=== PATIENT | female | born 1945 | race Caucasian/White ===

== ENCOUNTER → 2016-05-12 | Outpatient (CLI) | payer MEDICARE, OTHER ==
[~2016-05-12] VITALS: Ht 165.1 cm; Wt 71.2 kg
[~2016-05-12] MED LIST: ASPI81TA85 PO; CITRTAB10 PO; COQ-100C2 PO; DONETAB6 PO; LIDOCAINE 2% INJ 100 MG/5 ML SDV (FOR ANES.) As Ordered ONE; LISI10TA4 PO; MULT1TAB18 PO; NS 1,000 ML IV SCH; PRAV40TA2 PO; PROPOFOL 500 MG/50 ML VIAL As Ordered ONE; TAMO20TA4 PO; VITA100T86 PO; VITAMIN B12; [UNRECOGNIZED DRUG - OTHER]
--- NOTE | 2016-05-12 08:38 | ROOR ---
Patient Name: Lizzeth Jackson Procedure Date: 05/12/2016 8:08 AM Date of : 1945 Age: 70 Room: [facility] Gender: Female Note Status: Finalized Procedure: Colonoscopy Indications: Change in bowel habits, constipation,fecal impactions, mucousy stools Providers: Kevin WESTBROOK MD Referring MD: Yanna ALVARENGA MD Requesting Provider: Medicines: Monitored Anesthesia Care Complications: No immediate complications. Procedure: Pre-Anesthesia Assessment: - The heart rate, respiratory rate, oxygen saturations, blood pressure, adequacy of pulmonary ventilation, and response to care were monitored throughout the procedure. The Colonoscope was introduced through the anus and advanced to the cecum, identified by appendiceal orifice and ileocecal valve. The colonoscopy was performed without difficulty. The patient tolerated the procedure well. The quality of the bowel preparation was good. Findings: The perianal and digital rectal examinations were normal. (Exam: Complete, Prep: Good or Excellent.) A patchy area of granular mucosa was found in the rectum. Biopsies were taken with a cold forceps for histology. Internal hemorrhoids were found during retroflexion. The hemorrhoids were medium-sized. Multiple small and large-mouthed diverticula were found in the sigmoid colon and descending colon. There was evidence of diverticular spasm. A diminutive polyp was found in the sigmoid colon. The polyp was sessile. The polyp was removed with a jumbo cold forceps. Resection and retrieval were complete. The exam was otherwise without abnormality on direct and retroflexion views. Impression: - (Exam: Complete, Prep: Good or Excellent.) - Granularity in the rectum. Biopsied. - Moderate Internal hemorrhoids. - Moderate diverticulosis in the sigmoid colon and in the descending colon. There was evidence of diverticular spasm. - One diminutive polyp in the sigmoid colon, removed with a jumbo cold forceps. Resected and retrieved. - The examination was otherwise normal on direct and retroflexion views. Recommendation: - Miralax 1 capful (17 grams) in 8 ounces of water PO BID. - Use fiber, for example Citrucel, Fibercon, Konsyl or Metamucil. - Telephone endoscopist for pathology results in 2 weeks. Kevin Westbrook MD Kevin WESTBROOK MD 05/12/2016 8:37:41 AM This report has been signed electronically. Number of Addenda: 0 Note Initiated On: 05/12/2016 8:08 AM Estimated Blood Loss: Estimated blood loss: none.
[2016-05-12 08:55] VITALS: BP 149/69
== END | disposition home or self-care (01) ==
LOC: M OPP 07:29
PROVIDERS: ATTEND Internal Medicine Gastroenterology
DX: K64.8 Other hemorrhoids (principal); K57.30 Diverticulosis of large intestine without perforation or abscess without bleeding; D12.5 Benign neoplasm of sigmoid colon; K62.89 Other specified diseases of anus and rectum; I10 Essential (primary) hypertension; N88.2 Stricture and stenosis of cervix uteri; E78.5 Hyperlipidemia, unspecified; J44.9 Chronic obstructive pulmonary disease, unspecified; G31.84 Mild cognitive impairment of uncertain or unknown etiology; Z79.899 Other long term (current) drug therapy; Z79.82 Long term (current) use of aspirin; Z88.8 Allergy status to other drugs, medicaments and biological substances; Z88.0 Allergy status to penicillin; Z88.5 Allergy status to narcotic agent

== ENCOUNTER → 2016-11-08 | Outpatient (CLI) | payer MEDICARE, OTHER ==
[~2016-11-08] MED LIST changes: -LIDOCAINE 2% INJ 100 MG/5 ML SDV (FOR ANES.) As Ordered ONE; -NS 1,000 ML IV SCH; -PROPOFOL 500 MG/50 ML VIAL As Ordered ONE
[2016-11-08 12:05] LABS: ALBUMIN 3.7 GM/DL (3.2-5.2); ALBUMIN/GLOBULIN RATIO 1.16 (1.00-1.93); ALKALINE PHOSPHATASE 28 U/L (45-117); ALT/SGPT 28 U/L (12-78); AST/SGOT 27 U/L (15-37); BILIRUBIN,DIRECT < 0.1 MG/DL (0.0-0.2); BILIRUBIN,TOTAL 0.4 MG/DL (0.2-1.0); BLOOD UREA NITROGEN 20 MG/DL (7-18); CREATININE FOR GFR 0.75 MG/DL (0.55-1.02); GLOMERULAR FILTRATION RATE > 60.0 (>39); TOTAL PROTEIN 6.9 GM/DL (6.4-8.2)
== END ==
LOC: M LAB 10:41
PROVIDERS: ATTEND Internal Medicine Gastroenterology
DX: R93.2 Abnormal findings on diagnostic imaging of liver and biliary tract (principal)

== ENCOUNTER → 2016-11-10 | Outpatient (CLI) | payer MEDICARE, OTHER ==
--- NOTE | 2016-11-11 09:23 | REP ---
MRI LIVER WITH AND WITHOUT CONTRAST: TECHNIQUE: Multiple sequences obtained in the axial and coronal planes prior to and following the intravenous administration of 15 mL of Gadolinium. Correlation is made with recent CT exam from [facility] 10/03/2016 which showed a liver lesion at the dome of the liver at the border between the right and left lobes. Today's MRI shows an oval nodule at this location which measures approximately 3.1 x 2.5 cm. It is hyperintense on T1 and hypointense on T2. There is peripheral nodular enhancement after the administration of intravenous Gadolinium with gradual filling in of the lesion with contrast, consistent with a hemangioma. No other liver lesion is seen. The spleen, adrenals and pancreas are unremarkable. There are bilateral renal cysts again noted. Patient has had a prior cholecystectomy. No adenopathy or free fluid is seen in the visualized abdomen. There do appear to be some patchy areas of diminished signal on the out-phase images within the liver, compatible with some areas of patchy fatty infiltration of the liver. IMPRESSION: Liver lesion at the dome, between the right and left lobes, corresponds to a hemangioma. No other liver lesion identified. Signed by Shant Stewart MD 11/11/2016 09:49 A
== END ==
LOC: M RAD 16:30
PROVIDERS: ATTEND Internal Medicine Gastroenterology
DX: K76.89 Other specified diseases of liver (principal)
CPT/HCPCS: 74183; A9576

== ENCOUNTER → 2017-02-09 | Outpatient (REF) | payer MEDICARE, OTHER | LOC: M SFHCWAGY 10:33 | PROVIDERS: ATTEND Nurse Practitioner Women's Health | DX: Z12.4 Encounter for screening for malignant neoplasm of cervix (principal); Z12.12 Encounter for screening for malignant neoplasm of rectum | CPT/HCPCS: 82270; G0101; G0123 ==

== ENCOUNTER → 2017-06-26 | Outpatient (REF) | payer MEDICARE, OTHER ==
[2017-06-26 15:05] LABS: AMORPHOUS SEDIMENT, URINE SMALL AMOUNT (NEGATIVE); BACTERIA, URINE LARGE AMOUNT; MUCUS, URINE SMALL AMOUNT (NEGATIVE); SQUAMOUS EPITHELIAL CELL URINE LARGE AMOUNT /hpf (SMALL AMT); TRANSITIONAL EPI CELLS, URINE SMALL AMOUNT /hpf
[2017-06-26 15:07] LABS: HYALINE CAST, URINE NONE SEEN /lpf (0-1); MICROSCOPIC EXAM PERFORMED
== END ==
LOC: M LAB REF 09:10
DX: R31.9 Hematuria, unspecified (principal)
CPT/HCPCS: 81015

== ENCOUNTER 2017-07-11 15:22 | Emergency (ER) | payer MEDICARE, OTHER ==
[2017-07-11] MEDS: ALBUTEROL SULFATE 2.5 MG/0.5 ML INH NEB SOLN NEB ×2 (16:06)
[2017-07-11] MEDS: IPRATROPIUM 0.5MG/ALBUTEROL 2.5MG INH SOL UD 3ML (DUONEB)(J7620) NEB ×4 (16:13→16:28)
[2017-07-11] MEDS: methylPREDNISolone INJ 125 MG/2 ML VIAL (J2930) IV ×2 (16:15)
[2017-07-11 16:38] LABS: ABG BASE EXCESS 0.1 (-2.0-2.0); ABG HCO3 24.4 MEQ/L (22.0-26.0); ABG STANDARD HCO3 24.2 MEQ/L (22.0-26.0); ABG TOTAL CO2 25.6 MEQ/L (23.0-31.0); ABG pH (ARTERIAL) 7.415 UNITS (7.350-7.450)
[2017-07-11 16:43] LABS: ABG O2 SATURATION 79.8 % (95.0-99.0); ABG PARTIAL PRESSURE O2 45.9 mmHg (75.0-100.0); BASO # 0.1 10^3/uL (0.0-0.2); BASO % 0.4 % (0.0-1.0); HEMATOCRIT 44.5 % (36.0-47.0); HEMOGLOBIN 14.8 g/dl (12.0-15.5); IMMATURE GRANULOCYTE % 0.5 % (0-3.0); LYMPH # 1.3 10^3/uL (1.5-4.5); LYMPH % 7.4 % (24.0-44.0); MEAN CORPUSCULAR HEMOGLOBIN 30.1 pg (27.0-33.0); MEAN CORPUSCULAR HGB CONC 33.3 g/dl (32.0-36.5); MEAN CORPUSCULAR VOLUME 90.4 fl (80.0-96.0); MONO # 0.6 10^3/uL (0.0-0.8); MONO % 3.8 % (0.0-5.0); NEUTROPHILS # 14.8 10^3/uL (1.8-7.7); NEUTROPHILS % 87.9 % (36.0-66.0); PLATELET COUNT, AUTOMATED 258 10^3/uL (150-450); RED BLOOD COUNT 4.92 10^6/uL (4.00-5.40); RED CELL DISTRIBUTION WIDTH 13.3 % (11.5-14.5); WHITE BLOOD COUNT 16.9 10^3/uL (4.0-10.0)
[2017-07-11 16:51] LABS: INFLUENZA A AMPLIFICATION NEGATIVE (NEGATIVE); INFLUENZA B AMPLIFICATION NEGATIVE (NEGATIVE)
[2017-07-11 17:02] LABS: ALBUMIN 3.8 GM/DL (3.2-5.2); ALBUMIN/GLOBULIN RATIO 0.95 (1.00-1.93); ALKALINE PHOSPHATASE 30 U/L (45-117); ALT/SGPT 32 U/L (12-78); ANION GAP 11 MEQ/L (8-16); AST/SGOT 25 U/L (7-37); BILIRUBIN,DIRECT < 0.1 MG/DL (0.0-0.2); BILIRUBIN,TOTAL 0.3 MG/DL (0.2-1.0); BLOOD UREA NITROGEN 15 MG/DL (7-18); CALCIUM LEVEL 8.6 MG/DL (8.8-10.2); CARBON DIOXIDE LEVEL 23 MEQ/L (21-32); CHLORIDE LEVEL 107 MEQ/L (98-107); CPK CREATINE PHOSPHOKINASE 113 U/L (26-192); CREATININE FOR GFR 0.82 MG/DL (0.55-1.30); GLOMERULAR FILTRATION RATE > 60.0 (>39); GLUCOSE, FASTING 181 MG/DL (70-100); POTASSIUM SERUM 3.5 MEQ/L (3.5-5.1); SODIUM LEVEL 141 MEQ/L (136-145); TOTAL PROTEIN 7.8 GM/DL (6.4-8.2); TROPONIN I 0.03 NG/ML (< 0.10)
[2017-07-11 17:07] LABS: CK-MB VALUE MASS 1.6 NG/ML (<3.6); MB/CK RELATIVE INDEX 1.41 (< OR =4); NT-PRO BNP 204 PG/ML (<125)
[2017-07-11 17:11] LABS: LACTIC ACID SEPSIS PROTOCOL 3.1 MMOL/L (0.4-2.0)
[2017-07-11] MEDS ORDERED: ISOVUE-370 76% 100ML VIAL (Q9967) As Ordered ×2 (17:15)
[2017-07-11] MEDS: hydrALAZINE INJ 20 MG/ML VIAL IV ×6 (17:58→19:59)
[2017-07-11 19:33] LABS: ABG BASE EXCESS -3.8 (-2.0-2.0); ABG HCO3 21.4 MEQ/L (22.0-26.0); ABG O2 SATURATION 88.9 % (95.0-99.0); ABG PARTIAL PRESSURE CO2 39.7 mmHg (35.0-45.0); ABG PARTIAL PRESSURE O2 57.4 mmHg (75.0-100.0); ABG STANDARD HCO3 21.1 MEQ/L (22.0-26.0); ABG TOTAL CO2 22.6 MEQ/L (23.0-31.0)
[2017-07-11] MEDS: NITROGLYCERIN/D5W 100MCG/ML 25 MG in APPROPRIATE DILUENT 1 EA IV (20:20)
[2017-07-11 20:41] LABS: KETONE, URINE AUTO RFX 1+ mg/dL (NEGATIVE); LEUKOCYTE ESTERASE UR AUTO RFX NEGATIVE (NEGATIVE); NITRITE, URINE AUTO RFX POSITIVE (NEGATIVE); RBC, URINE AUTO RFX TNTC /HPF (0-3); SPECIFIC GRAVITY UR AUTO RFX 1.033 (1.002-1.035); SQUAM EPITHELIAL CELL UR AURFX 0 /HPF (0-6); WBC, URINE AUTO RFX 3 /HPF (0-3)
[2017-07-11] MEDS ORDERED: VERAPAMIL HCL 5 MG/2 ML VIAL As Ordered ×2 (20:58)
[2017-07-11] MEDS: VERAPAMIL HCL 5 MG/2 ML VIAL IV ×2 (21:03)
[2017-07-11 21:41] LABS: LACTIC ACID SEPSIS PROTOCOL 3.5 MMOL/L (0.4-2.0)
== END 2017-07-11 21:15 | disposition short-term general hospital (02) ==
LOC: M ED 15:22
DX: J96.01 Acute respiratory failure with hypoxia (principal); I16.0 Hypertensive urgency; I48.91 Unspecified atrial fibrillation; R00.0 Tachycardia, unspecified; E78.5 Hyperlipidemia, unspecified; C50.919 Malignant neoplasm of unspecified site of unspecified female breast; Z79.899 Other long term (current) drug therapy; Z79.82 Long term (current) use of aspirin; Z88.0 Allergy status to penicillin; Z88.5 Allergy status to narcotic agent; Z88.8 Allergy status to other drugs, medicaments and biological substances; Z91.018 Allergy to other foods
CPT/HCPCS: Q9967

== ENCOUNTER → 2018-02-09 | Outpatient (REF) | payer MEDICARE, OTHER | LOC: M SFHCWAGY 10:16 | DX: Z12.4 Encounter for screening for malignant neoplasm of cervix (principal); Z79.810 Long term (current) use of selective estrogen receptor modulators (SERMs) | CPT/HCPCS: G0123 ==

== ENCOUNTER → 2018-06-06 | Outpatient (REF) | payer MEDICARE, OTHER ==
[~2018-06-06] MED LIST changes: -TAMO20TA4 PO; +TAMO20TA8 PO
== END ==
LOC: M LAB REF 14:09
PROVIDERS: ATTEND Internal Medicine
DX: R19.7 Diarrhea, unspecified (principal)

== ENCOUNTER → 2019-02-12 | Outpatient (REF) | payer MEDICARE, OTHER ==
[~2019-02-12] MED LIST changes: +COQ-100C5 PO; +MULT1CAP3 PO
== END ==
LOC: M SFHCWAGY 10:30
PROVIDERS: ATTEND Nurse Practitioner Women's Health
DX: Z12.4 Encounter for screening for malignant neoplasm of cervix (principal)
CPT/HCPCS: G0101; G0123

== ENCOUNTER → 2019-07-23 | Outpatient (REF) | payer MEDICARE, OTHER ==
[~2019-07-23] MED LIST changes: +KELP150T2 PO
== END ==
LOC: M LAB REF 16:17
PROVIDERS: ATTEND Internal Medicine
DX: N76.0 Acute vaginitis (principal)

== ENCOUNTER → 2019-08-05 | Outpatient (REF) | payer MEDICARE, OTHER ==
[~2019-08-05] MED LIST changes: +HYDR12CA PO; +LISI-542 PO
== END ==
LOC: M LAB REF 15:38
PROVIDERS: ATTEND Internal Medicine
DX: M19.90 Unspecified osteoarthritis, unspecified site (principal); K90.0 Celiac disease; M25.9 Joint disorder, unspecified

== ENCOUNTER → 2019-12-20 | Outpatient (CLI) | payer SELFPAY ==
[~2019-12-20] MED LIST changes: -ASPI81TA85 PO; +ASPI81TA86 PO; +CVS1CHW8 PO; +GABA-1171 PO; +IBAN150T6 PO; +LOPE2TAB12 PO; +neuriva
== END ==
LOC: M LABSMTC 12:22
PROVIDERS: ATTEND Pediatrics
DX: Z20.828 Contact with and (suspected) exposure to other viral communicable diseases (principal)

== ENCOUNTER → 2020-02-14 | Outpatient (REF) | payer MEDICARE, OTHER | LOC: M SFHCWAGY 13:28 | PROVIDERS: ATTEND Nurse Practitioner Women's Health | DX: Z12.4 Encounter for screening for malignant neoplasm of cervix (principal); Z79.810 Long term (current) use of selective estrogen receptor modulators (SERMs); N95.8 Other specified menopausal and perimenopausal disorders | CPT/HCPCS: 87624; G0101; G0123 ==

== ENCOUNTER → 2020-07-31 | Outpatient (CLI) | payer MEDICARE, OTHER ==
[~2020-07-31] MED LIST changes: -LISI-542 PO; +LISI-898 PO; +LISI10TA22 PO; -LISI10TA4 PO
--- NOTE | 2020-07-31 11:23 | REPMRS ---
Patient History The patient states she had a clinical breast exam in May 2020. Patient is postmenopausal and had first child at age 33. No known family history of cancer. Taking tamoxifen for 7 years. Patient states no breast complaints today. Patient has signed MRS History Sheet. Best images possible due to pts limited mobility of her neck and concave chest. Pt is unable to remember the type of covid vaccine and the dates in which she had it, patient also states she had both vaccines in her right arm. Digital Woman Screen Mammo: July 31, 2020 - Exam #: [id number] Bilateral CC and MLO view(s) were taken. Technologist: RT Jess Prior study comparison: February 17, 2016, left breast digital mammo diagnostic unilateral, performed at [facility]. FINDINGS: There are scattered fibroglandular densities. Screening. Digital screening (2D) mammography was performed bilaterally in the CC and MLO projections. Additionally, breast tomosynthesis (3D mammography) was performed bilaterally in the CC and MLO projections. Todays exam was compared to the prior exams(s). By history, the patient has no complaints of a palpable breast abnormality or other significant breast complaints. The breasts are unchanged in size and shape. There are no bryan-soft tissue densities or spiculated masses. There is no internal architectural distortion. There are no suspicious bryan-calcific clusters. Skin thickening or nipple retraction is not present. IMPRESSION: BI-RADS Category 2- Benign Findings(s). There is no evidence of malignant alteration of the breasts. Followup examination recommended in one year. The Volpara volumetric breast density category is B, there are scattered areas of fibroglandular density. This mammogram was read with the assistance of [employer],an FDA approved computer aided detection system for mammography. The lifetime Tyrer-Cuzick score is 4.7 % Negative x-ray reports should not delay surgical consultation if a dominant or clinically suspicious mass is present. Not all breast cancers can be identified by mammography. Therefore, we recommend that you continue to perform regular breast self-examination and physical examination and then promptly contact your physician of any concerns or changes. Adenosis and dense breasts may obscure an underlying neoplasm. Assessment: BI-RADS/ACR category 2 mammogram. Benign Findings. Recommendation Routine screening mammogram of both breasts in 1 year. Electronically Signed By: Brian Reeves DO 07/31/20 1121
--- NOTE | 2020-07-31 15:01 | DEXAMM ---
INDICATION: M85.80 [facility] DISRD OF BONE DENSITY AND STRUCTURE. COMPARISON: Comparison study July 06, 2018 and May 12, 2004.. TECHNIQUE: Bone density was measured using dual-energy x-ray absorptionmetry (DEXA). FINDINGS: AP SPINE L1-L4 BMD 1.135 g/cm2 Young Adult T-Score -0.5 Age Matched Z-Score 1.3. LT FEMUR, TOTAL BMD 0.799 g/cm2 Young Adult T-Score -1.7 Age Matched Z-Score 0.0. LT NECK BMD 0.746 g/cm2 Young Adult T-Score -2.1 Age Matched Z-Score -0.2. RT FEMUR, TOTAL BMD 0.738 g/cm2 Young Adult T-Score -2.1 Age Matched Z-Score -0.5. RT NECK BMD 0.716 g/cm2 Young Adult T-Score -2.3 Age Matched Z-Score -0.4. IMPRESSION: There is normal bone density of the spine. There is low bone density of the left hip. There is low bone density of the right hip. The density of the spine has increased 3.6% since the initial exam on May 12, 2004. The density of the spine increased 1.9% since most recent exam on July 06, 2018. The density of the left hip has increased 2.7% since initial exam on May 12, 2004. The density of the left hip has increase 3.2% since most recent exam on July 06, 2018. The density of the right hip has decrease 3.0% since the initial exam on May 12, 2004. The density of the right hip has decreased 7.3% since the most recent exam on July 06, 2018. FOLLOW-UP: Recommendation for the next bone density exam: 2 years. <Electronically signed by Sravan Aragon > 07/31/20 [id number]
== END ==
LOC: M WHC 08:55
PROVIDERS: ATTEND Internal Medicine
DX: Z12.31 Encounter for screening mammogram for malignant neoplasm of breast (principal); M85.851 Other specified disorders of bone density and structure, right thigh

== ENCOUNTER → 2021-06-22 | Outpatient (CLI) | payer MEDICARE, OTHER ==
[~2021-06-22] MED LIST changes: +COVI30VI IM; +DONE-1 PO; -DONETAB6 PO; -LISI-898 PO; +LISI5TAB11 PO
== END ==
LOC: M WUC 09:05
PROVIDERS: ATTEND Internal Medicine
DX: I48.91 Unspecified atrial fibrillation (principal)

== ENCOUNTER → 2021-08-02 | Outpatient (CLI) | payer MEDICARE, OTHER | LOC: M WHC 08:28 | PROVIDERS: ATTEND Internal Medicine | DX: Z12.31 Encounter for screening mammogram for malignant neoplasm of breast (principal) ==

== ENCOUNTER 2021-09-12 08:42 | Emergency (ER) | payer MEDICARE, OTHER ==
[~2021-09-12] VITALS: Ht 165.1 cm; Wt 68.2 kg
[2021-09-12] MEDS ORDERED: ELIQ5TAB PO (09:18)
[2021-09-12] MEDS ORDERED: METO1TAB7 PO (09:18)
[2021-09-12 09:22] LABS: BILIRUBIN, URINE MANUAL NEGATIVE (NEGATIVE); GLUCOSE, URINE (UA) MANUAL NEGATIVE (NEGATIVE); KETONE, URINE MANUAL NEGATIVE (NEGATIVE); UROBILINOGEN, URINE MANUAL NORMAL (NORMAL)
[2021-09-12 09:25] LABS: BACTERIA, URINE LARGE AMOUNT; HYALINE CAST, URINE NONE SEEN /lpf (0-1); MUCUS, URINE SMALL AMOUNT (NEGATIVE); SQUAMOUS EPITHELIAL CELL URINE SMALL AMOUNT /hpf (SMALL AMT)
[2021-09-12] MEDS ORDERED: DILT120C31 (10:10)
[2021-09-12] MEDS ORDERED: BACT400T PO (10:12)
[2021-09-12] MEDS ORDERED: BACTRIM 160MG/800MG DS TAB PO ONE ×2 (10:15→10:30)
[2021-09-12] MEDS ORDERED: BACT800T5 PO (10:31)
[2021-09-12 12:21] VITALS: BP 122/78
== END 2021-09-12 12:22 | disposition home or self-care (01) ==
LOC: EDBD 08:42 → M ED 08:42
DX: N39.0 Urinary tract infection, site not specified (principal); E78.5 Hyperlipidemia, unspecified; I10 Essential (primary) hypertension; Z78.0 Asymptomatic menopausal state

== ENCOUNTER → 2021-09-29 | Outpatient (REF) | payer MEDICARE, OTHER ==
[~2021-09-29] MED LIST changes: +BACT400T PO; +BACT800T5 PO; +DILT120C31; +ELIQ5TAB PO; +METO1TAB7 PO
[2021-09-29 14:28] LABS: BACTERIA, URINE AUTO 1+ (NEGATIVE); MUCUS, URINE SMALL (NEGATIVE); RBC, URINE AUTO 117 /HPF (0-3); SQUAMOUS EPITHELIAL CELL UR AU 1 /HPF (0-6); WBC, URINE AUTO 6 /HPF (0-3)
== END ==
LOC: M LAB REF 12:44
PROVIDERS: ATTEND Internal Medicine
DX: R35.0 Frequency of micturition (principal)

== ENCOUNTER → 2021-10-15 | Outpatient (REF) | payer MEDICARE, OTHER ==
[2021-10-15 18:48] LABS: APPEARANCE, URINE TURBID (CLEAR); BACTERIA, URINE AUTO 2+ (NEGATIVE); BILIRUBIN, URINE AUTO NEGATIVE (NEGATIVE); BLOOD, URINE BLOOD 3+ (NEGATIVE); CALCIUM OXALATE CRYSTALS SMALL; COLOR, URINE AMBER (YELLOW); GLUCOSE, URINE (UA) AUTO NEGATIVE (NEGATIVE); KETONE, URINE AUTO TRACE mg/dL (NEGATIVE); LEUKOCYTE ESTERASE, URINE AUTO NEGATIVE (NEGATIVE); MUCUS, URINE LARGE (NEGATIVE); NITRITE, URINE AUTO NEGATIVE (NEGATIVE); PROTEIN, URINE AUTO 2+ mg/dL (NEGATIVE); RBC, URINE AUTO TNTC /HPF (0-3); SPECIFIC GRAVITY URINE AUTO 1.018 (1.002-1.035); SQUAMOUS EPITHELIAL CELL UR AU 24 /HPF (0-6); UROBILINOGEN, URINE AUTO 0.2 mg/dL (0.0-2.0); WBC, URINE AUTO 8 /HPF (0-3)
== END ==
LOC: M SMT 16:42
PROVIDERS: ATTEND Urology
DX: R31.29 Other microscopic hematuria (principal)

== ENCOUNTER → 2021-10-21 | Outpatient (CLI) | payer MEDICARE, OTHER ==
[~2021-10-21] MED LIST changes: +ISOVUE-370 76% 100ML VIAL As Ordered ONE
== END ==
LOC: M RAD 08:10
PROVIDERS: ATTEND Internal Medicine
DX: N30.01 Acute cystitis with hematuria (principal)
CPT/HCPCS: 74178; Q9967

== ENCOUNTER → 2021-10-27 | Outpatient (REF) | payer MEDICARE, OTHER ==
[~2021-10-27] MED LIST changes: -ISOVUE-370 76% 100ML VIAL As Ordered ONE
[2021-10-27 17:59] LABS: APPEARANCE, URINE TURBID (CLEAR); BACTERIA, URINE AUTO 2+ (NEGATIVE); BILIRUBIN, URINE AUTO NEGATIVE (NEGATIVE); BLOOD, URINE BLOOD 1+ (NEGATIVE); COLOR, URINE AMBER (YELLOW); GLUCOSE, URINE (UA) AUTO NEGATIVE (NEGATIVE); KETONE, URINE AUTO TRACE mg/dL (NEGATIVE); LEUKOCYTE ESTERASE, URINE AUTO 2+ (NEGATIVE); MUCUS, URINE SMALL (NEGATIVE); NITRITE, URINE AUTO POSITIVE (NEGATIVE); PROTEIN, URINE AUTO 3+ mg/dL (NEGATIVE); RBC, URINE AUTO 31 /HPF (0-3); SPECIFIC GRAVITY URINE AUTO 1.016 (1.002-1.035); SQUAMOUS EPITHELIAL CELL UR AU 1 /HPF (0-6); UROBILINOGEN, URINE AUTO 0.2 mg/dL (0.0-2.0); WBC, URINE AUTO TNTC /HPF (0-3)
== END ==
LOC: M SMT 16:38
PROVIDERS: ATTEND Urology
DX: R31.29 Other microscopic hematuria (principal)

== ENCOUNTER 2021-11-20 08:59 | Emergency (ER) | payer MEDICARE, OTHER ==
[~2021-11-20] VITALS: Ht 165.1 cm; Wt 68.1 kg
[2021-11-20] MEDS ORDERED: diphenhydrAMINE 50MG/ML VIAL (J1200) IV PRN (09:30)
[2021-11-20] MEDS ORDERED: NS 500 ML IV ONE (09:30)
[2021-11-20] MEDS ORDERED: ALBUTEROL 90 MCG/ACT 8GM HFA INHALER INH PRN (09:30)
[2021-11-20] MEDS ORDERED: BEBTELOVIMAB 175MG 2ML VIAL (EUA) IV ONE ×2 (09:30→12:00)
[2021-11-20] MEDS ORDERED: EPINEPHrine INJ 1 MG/ML 1ML AMP IM PRN (09:30)
[2021-11-20] MEDS ORDERED: methylPREDNISolone 125MG 2ML VIAL IV PRN (09:30)
[2021-11-20] MEDS ORDERED: ACETAMINOPHEN TAB 650MG DOSE (2X325MG) PO PRN (09:30)
[2021-11-20] MEDS ORDERED: ALBUTEROL SULFATE 2.5 MG/0.5 ML INH NEB SOLN INH PRN (09:30)
[2021-11-20] MEDS ORDERED: NS 1,000 ML IV SCH (09:30)
[2021-11-20 13:48] LABS: BLOOD UREA NITROGEN 16 MG/DL (7-18); CALCIUM LEVEL 9.1 MG/DL (8.8-10.2); CARBON DIOXIDE LEVEL 27 MEQ/L (21-32); CHLORIDE LEVEL 109 MEQ/L (98-107); CREATININE FOR GFR 0.68 MG/DL (0.55-1.30); GLOMERULAR FILTRATION RATE > 60.0 (>39); GLUCOSE, FASTING 110 MG/DL (70-100); SODIUM LEVEL 142 MEQ/L (136-145)
[2021-11-20 14:03] VITALS: BP 125/83
[2021-11-20 15:47] VITALS: BP 137/95
== END 2021-11-20 16:11 | disposition home or self-care (01) ==
LOC: M ED 08:59 → EDBD 08:59 → M ED 16:11
DX: U07.1 COVID-19 (principal); I48.91 Unspecified atrial fibrillation; I10 Essential (primary) hypertension; E78.5 Hyperlipidemia, unspecified; Z85.3 Personal history of malignant neoplasm of breast; Z90.49 Acquired absence of other specified parts of digestive tract; Z88.0 Allergy status to penicillin; Z88.5 Allergy status to narcotic agent; Z88.8 Allergy status to other drugs, medicaments and biological substances; Z79.01 Long term (current) use of anticoagulants; Z79.899 Other long term (current) drug therapy
CPT/HCPCS: 36415; 80048; 87426; 96360; 96361; 99284; M0222

== ENCOUNTER → 2021-12-14 | Outpatient (REF) | payer MEDICARE, OTHER ==
[2021-12-14 13:56] LABS: APPEARANCE, URINE MANUAL HAZY (CLEAR); BILIRUBIN, URINE MANUAL NEGATIVE (NEGATIVE); BLOOD URINE MANUAL POSITIVE (NEGATIVE); COLOR, URINE MANUAL YELLOW (YELLOW); GLUCOSE, URINE (UA) MANUAL NEGATIVE (NEGATIVE); KETONE, URINE MANUAL NEGATIVE (NEGATIVE); LEUKOCYTE ESTERASE, URINE MAN POSITIVE (NEGATIVE); NITRITE, URINE MANUAL NEGATIVE (NEGATIVE); PROTEIN, URINE MANUAL TRACE mg/dL (NEGATIVE); UROBILINOGEN, URINE MANUAL NORMAL (NORMAL)
[2021-12-14 14:26] LABS: RBC, URINE TNTC /hpf (0-3); SQUAMOUS EPITHELIAL CELL URINE LARGE AMOUNT /hpf (SMALL AMT)
[2021-12-14 14:27] LABS: BACTERIA, URINE LARGE AMOUNT; CALCIUM OXALATE CRYSTALS,URINE MOD AMOUNT /hpf; MUCUS, URINE MOD AMOUNT (NEGATIVE)
[2021-12-14 14:28] LABS: HYALINE CAST, URINE NONE SEEN /lpf (0-1)
== END ==
LOC: M SMT 13:04
PROVIDERS: ATTEND Urology
DX: Z87.440 Personal history of urinary (tract) infections (principal)

== ENCOUNTER → 2022-06-14 | Outpatient (REF) | payer MEDICARE, OTHER ==
[2022-06-14 18:53] LABS: APPEARANCE, URINE CLOUDY (CLEAR); BACTERIA, URINE AUTO 2+ (NEGATIVE); BILIRUBIN, URINE AUTO NEGATIVE (NEGATIVE); BLOOD, URINE BLOOD 3+ (NEGATIVE); CALCIUM OXALATE CRYSTALS LARGE; COLOR, URINE AMBER (YELLOW); GLUCOSE, URINE (UA) AUTO NEGATIVE (NEGATIVE); KETONE, URINE AUTO NEGATIVE (NEGATIVE); LEUKOCYTE ESTERASE, URINE AUTO NEGATIVE (NEGATIVE); MUCUS, URINE MODERATE (NEGATIVE); NITRITE, URINE AUTO POSITIVE (NEGATIVE); PROTEIN, URINE AUTO 2+ mg/dL (NEGATIVE); RBC, URINE AUTO TNTC /HPF (0-3); SPECIFIC GRAVITY URINE AUTO 1.017 (1.002-1.035); SQUAMOUS EPITHELIAL CELL UR AU 2 /HPF (0-6); UROBILINOGEN, URINE AUTO 0.2 mg/dL (0.0-2.0); WBC, URINE AUTO 15 /HPF (0-3)
== END ==
LOC: M SMT 17:07
PROVIDERS: ATTEND Urology
DX: R31.29 Other microscopic hematuria (principal)

== ENCOUNTER → 2022-07-27 | Outpatient (REF) | payer MEDICARE, OTHER | LOC: M LAB REF 16:38 | PROVIDERS: ATTEND Internal Medicine | DX: N39.0 Urinary tract infection, site not specified (principal); R30.0 Dysuria ==

== ENCOUNTER → 2022-08-11 | Outpatient (CLI) | payer MEDICARE, OTHER | LOC: M WHC 10:15 | PROVIDERS: ATTEND Internal Medicine | DX: Z12.31 Encounter for screening mammogram for malignant neoplasm of breast (principal); M89.9 Disorder of bone, unspecified; M85.851 Other specified disorders of bone density and structure, right thigh; M85.852 Other specified disorders of bone density and structure, left thigh ==

== ENCOUNTER → 2022-11-10 | Outpatient (REF) | payer MEDICARE, OTHER ==
[2022-11-10 17:34] LABS: AMORPHOUS SEDIMENT SMALL (NEGATIVE); APPEARANCE, URINE TURBID (CLEAR); BACTERIA, URINE AUTO 1+ (NEGATIVE); BILIRUBIN, URINE AUTO NEGATIVE (NEGATIVE); BLOOD, URINE BLOOD 2+ (NEGATIVE); COLOR, URINE AMBER (YELLOW); GLUCOSE, URINE (UA) AUTO NEGATIVE (NEGATIVE); KETONE, URINE AUTO NEGATIVE (NEGATIVE); LEUKOCYTE ESTERASE, URINE AUTO 3+ (NEGATIVE); MUCUS, URINE LARGE (NEGATIVE); NITRITE, URINE AUTO POSITIVE (NEGATIVE); PROTEIN, URINE AUTO 2+ mg/dL (NEGATIVE); RBC, URINE AUTO TNTC /HPF (0-3); SPECIFIC GRAVITY URINE AUTO 1.018 (1.002-1.035); SQUAMOUS EPITHELIAL CELL UR AU 17 /HPF (0-6); UROBILINOGEN, URINE AUTO 0.2 mg/dL (0.0-2.0); WBC, URINE AUTO TNTC /HPF (0-3)
== END ==
LOC: M LAB REF 16:25
PROVIDERS: ATTEND Internal Medicine
DX: R29.6 Repeated falls (principal); G31.84 Mild cognitive impairment of uncertain or unknown etiology; R39.9 Unspecified symptoms and signs involving the genitourinary system

== ENCOUNTER 2022-12-27 01:34 | Observation (INO) | payer MEDICARE, OTHER ==
[~2022-12-27] VITALS: Ht 165.1 cm; Wt 71.5 kg
[~2022-12-27 01:34] MED LIST changes: -DILT120C31; +DILT120C31 PO
[2022-12-27 02:23] LABS: BASO % 0.5 % (0.0-1.0); EOS % 0.4 % (0.0-3.0); HEMATOCRIT 44.3 % (36.0-47.0); HEMOGLOBIN 14.8 g/dl (12.0-15.5); LYMPH # 0.8 10^3/uL (1.5-5.0); LYMPH % 9.9 % (24.0-44.0); MEAN CORPUSCULAR HEMOGLOBIN 30.5 pg (27.0-33.0); MEAN CORPUSCULAR HGB CONC 33.4 g/dl (32.0-36.5); MEAN CORPUSCULAR VOLUME 91.2 fl (80.0-96.0); MONO # 0.4 10^3/uL (0.0-0.8); MONO % 4.6 % (2.0-8.0); NEUTROPHILS # 6.5 10^3/uL (1.5-8.5); NEUTROPHILS % 84.3 % (36.0-66.0); PLATELET COUNT, AUTOMATED 193 10^3/uL (150-450); RED BLOOD COUNT 4.86 10^6/uL (4.00-5.40); WHITE BLOOD COUNT 7.8 10^3/uL (4.0-10.0)
[2022-12-27 02:39] LABS: ETHYL ALCOHOL (ETHANOL) < 0.003 % (0.000-0.010)
[2022-12-27 02:40] LABS: ACETAMINOPHEN LEVEL < 2.0 UG/ML (10.0-20.0); ALBUMIN 3.9 G/DL (3.2-5.2); ALKALINE PHOSPHATASE 40 U/L (46-116); ALT/SGPT 25 U/L (7.0-40); AST/SGOT 24 U/L (<34); BILIRUBIN,DIRECT 0.2 MG/DL (<0.4); BILIRUBIN,TOTAL 0.6 MG/DL (0.3-1.2); BLOOD UREA NITROGEN 16 MG/DL (9-23); CALCIUM LEVEL 9.2 MG/DL (8.3-10.6); CARBON DIOXIDE LEVEL 26 MMOL/L (20-31); CHLORIDE LEVEL 107 MMOL/L (98-107); CREATININE FOR GFR 0.69 MG/DL (0.55-1.30); GLOMERULAR FILTRATION RATE > 60.0 (>39); GLUCOSE, FASTING 145 MG/DL (74-106); POTASSIUM SERUM 3.5 MMOL/L (3.5-5.1); SALICYLATE LEVEL < 3.0 MG/DL (<30); SODIUM LEVEL 142 MMOL/L (136-145); TOTAL PROTEIN 6.9 G/DL (5.7-8.2)
[2022-12-27 02:43] LABS: THYROID STIMULATING HORMONE 1.945 uIU/ML (0.55-4.78)
[2022-12-27 02:56] LABS: RSV AMPLIFICATION NEGATIVE (NEGATIVE)
[2022-12-27 02:59] LABS: AMPHETAMINES LEVEL URINE NEGATIVE (NEGATIVE); BARBITURATES URINE NEGATIVE (NEGATIVE); BENZODIAZEPINES URINE NEGATIVE (NEGATIVE); COCAINE METABOLITE URINE NEGATIVE (NEGATIVE); METHADONE URINE NEGATIVE (NEGATIVE)
[2022-12-27 03:00] LABS: CANNABINOIDS URINE NEGATIVE (NEGATIVE); OPIATES URINE NEGATIVE (NEGATIVE); PHENCYCLIDINE URINE NEGATIVE (NEGATIVE)
[2022-12-27] MEDS ORDERED: MORPHINE 4 MG/ML 1ML VIAL IV ONE (05:45)
[2022-12-27] MEDS ORDERED: ONDANSETRON 4MG 2ML VIAL IV ONE (06:00)
[2022-12-27] MEDS ORDERED: ACETAMINOPHEN *IV* 1,000 MG in IV 1 EA IV ONE (06:50)
[2022-12-27] MEDS ORDERED: NS 1,000 ML IV ONE (06:50)
[2022-12-27] MEDS ORDERED: METOPROLOL SUCC (TopROL XL) 100MG *XL* TAB PO ONE (07:20)
[2022-12-27] MEDS ORDERED: ISOVUE-370 76% 100ML VIAL As Ordered ONE (07:26)
[2022-12-27] MEDS ORDERED: MED REC IN PROGRESS XX SCH (08:20)
[2022-12-27] MEDS ORDERED: MED REC CURRENTLY UNOBTAINABLE XX SCH (09:15)
[2022-12-27 13:01] LABS: INR 1.08; PROTHROMBIN TIME 13.7 SECONDS (12.5-14.5)
[2022-12-27 13:02] LABS: PARTIAL THROMBOPLASTIN TIME 27.9 SECONDS (24.8-34.2)
[2022-12-27 13:12] LABS: CK-MB VALUE MASS 1.3 NG/ML (<3.6)
[2022-12-27 13:14] LABS: MB/CK RELATIVE INDEX 0.47 (< OR =4)
[2022-12-27] MEDS ORDERED: ELIQ5TAB PO (14:35)
[2022-12-27] MEDS ORDERED: DONE10TA90 PO (14:37)
[2022-12-27] MEDS ORDERED: [UNRECOGNIZED DRUG - CODE] PO (14:39)
[2022-12-27] MEDS ORDERED: VITAMIN B COMPLEX PO (14:43)
[2022-12-27] MEDS ORDERED: CULTCAP2 PO (14:46)
[2022-12-27] MEDS ORDERED: [UNRECOGNIZED DRUG - OTHER] (14:46)
[2022-12-27] MEDS ORDERED: METO1TAB7 PO (14:48)
[2022-12-27] MEDS ORDERED: HOME MED LIST COMPLETE! XX SCH (15:00)
[2022-12-27] MEDS ORDERED: METO200T28 PO (15:45)
[2022-12-27] MEDS ORDERED: **hydrALAZINE** 10 MG TAB PO ONE (17:20)
[2022-12-27] MEDS: PRAVASTATIN 20 MG TAB PO SCH (17:58)
[2022-12-27 19:00] VITALS: BP 168/92; TEMP 97.6; O2SAT 96
[2022-12-27] MEDS: DONEPEZIL 5 MG TAB PO SCH (19:06)
[2022-12-27 20:00] VITALS: BP 138/85; TEMP 98.8; O2SAT 97
[2022-12-27] MEDS: APIXABAN 5 MG TAB (ELIQUIS) PO SCH (20:43)
[2022-12-27] MEDS: dilTIAZem 120MG **CD** CAPSULE PO SCH (20:43)
[2022-12-27 23:27] VITALS: BP 161/88; TEMP 97.3; O2SAT 96
[2022-12-28 03:20] VITALS: BP 149/83; TEMP 97; O2SAT 95
[2022-12-28 06:34] LABS: HEMATOCRIT 41.9 % (36.0-47.0); HEMOGLOBIN 14.6 g/dl (12.0-15.5); MEAN CORPUSCULAR HEMOGLOBIN 31.6 pg (27.0-33.0); MEAN CORPUSCULAR HGB CONC 34.8 g/dl (32.0-36.5); MEAN CORPUSCULAR VOLUME 90.7 fl (80.0-96.0); PLATELET COUNT, AUTOMATED 206 10^3/uL (150-450); RED BLOOD COUNT 4.62 10^6/uL (4.00-5.40); WHITE BLOOD COUNT 4.3 10^3/uL (4.0-10.0)
[2022-12-28 07:08] LABS: ALBUMIN 3.3 G/DL (3.2-5.2); ALKALINE PHOSPHATASE 34 U/L (46-116); ALT/SGPT 35 U/L (7.0-40); AST/SGOT 36 U/L (<34); BILIRUBIN,TOTAL 0.4 MG/DL (0.3-1.2); BLOOD UREA NITROGEN 11 MG/DL (9-23); CALCIUM LEVEL 8.2 MG/DL (8.3-10.6); CARBON DIOXIDE LEVEL 28 MMOL/L (20-31); CHLORIDE LEVEL 109 MMOL/L (98-107); CREATININE FOR GFR 0.58 MG/DL (0.55-1.30); GLOMERULAR FILTRATION RATE > 60.0 (>39); GLUCOSE, FASTING 99 MG/DL (74-106); POTASSIUM SERUM 3.5 MMOL/L (3.5-5.1); SODIUM LEVEL 142 MMOL/L (136-145); TOTAL PROTEIN 6.1 G/DL (5.7-8.2)
[2022-12-28] MEDS: ACETAMINOPHEN TAB 650MG DOSE (2X325MG) PO PRN (08:06)
[2022-12-28] MEDS: DONEPEZIL 5 MG TAB PO SCH (08:07)
[2022-12-28] MEDS: PRAVASTATIN 20 MG TAB PO SCH (08:07)
[2022-12-28] MEDS: METOPROLOL SUCC (TopROL XL) 100MG *XL* TAB PO SCH (08:07)
[2022-12-28] MEDS: APIXABAN 5 MG TAB (ELIQUIS) PO SCH ×2 (08:07→20:13)
[2022-12-28] MEDS: lisinopriL 5 MG TAB PO SCH (08:07)
[2022-12-28 08:11] VITALS: BP 168/98; TEMP 97.3; O2SAT 95
[2022-12-28] MEDS ORDERED: hydroCHLOROthiazide 12.5 MG CAPSULE PO SCH (09:00)
[2022-12-28] MEDS ORDERED: METOPROLOL SUCC (TopROL XL) 50MG **XL** TAB PO SCH (09:00)
[2022-12-28] MEDS ORDERED: lisinopriL 5 MG TAB PO SCH (09:00)
[2022-12-28] MEDS ORDERED: TAMOXIFEN CITRATE 10 MG TAB PO SCH (09:00)
[2022-12-28 11:50] VITALS: BP 129/85; TEMP 96.9; O2SAT 94
[2022-12-28 16:50] VITALS: BP 118/78; TEMP 97.3; O2SAT 95
[2022-12-28 19:49] VITALS: BP 110/77; TEMP 97.2; O2SAT 94
[2022-12-28] MEDS: dilTIAZem 120MG **CD** CAPSULE PO SCH (20:13)
[2022-12-28 21:14] VITALS: BP 144/97; TEMP 97.3; O2SAT 96
[2022-12-29 05:27] VITALS: BP 151/86; TEMP 97.5; O2SAT 95
[2022-12-29 07:08] LABS: HEMATOCRIT 42.3 % (36.0-47.0); HEMOGLOBIN 13.9 g/dl (12.0-15.5); MEAN CORPUSCULAR HEMOGLOBIN 30.3 pg (27.0-33.0); MEAN CORPUSCULAR HGB CONC 32.9 g/dl (32.0-36.5); MEAN CORPUSCULAR VOLUME 92.2 fl (80.0-96.0); PLATELET COUNT, AUTOMATED 167 10^3/uL (150-450); RED BLOOD COUNT 4.59 10^6/uL (4.00-5.40)
[2022-12-29 07:28] LABS: ALBUMIN 3.1 G/DL (3.2-5.2); ALKALINE PHOSPHATASE 33 U/L (46-116); ALT/SGPT 33 U/L (7.0-40); AST/SGOT 37 U/L (<34); BILIRUBIN,TOTAL 0.5 MG/DL (0.3-1.2); BLOOD UREA NITROGEN 22 MG/DL (9-23); CALCIUM LEVEL 8.7 MG/DL (8.3-10.6); CARBON DIOXIDE LEVEL 28 MMOL/L (20-31); CHLORIDE LEVEL 110 MMOL/L (98-107); CREATININE FOR GFR 0.69 MG/DL (0.55-1.30); GLOMERULAR FILTRATION RATE > 60.0 (>39); GLUCOSE, FASTING 90 MG/DL (74-106); POTASSIUM SERUM 3.4 MMOL/L (3.5-5.1); SODIUM LEVEL 145 MMOL/L (136-145)
[2022-12-29] MEDS ORDERED: POTASSIUM CHLORIDE 10MEQ SR TABLET PO ONE (09:00)
[2022-12-29] MEDS: DONEPEZIL 5 MG TAB PO SCH (09:11)
[2022-12-29] MEDS: PRAVASTATIN 20 MG TAB PO SCH (09:12)
[2022-12-29] MEDS: APIXABAN 5 MG TAB (ELIQUIS) PO SCH ×2 (09:12→19:47)
[2022-12-29] MEDS: METOPROLOL SUCC (TopROL XL) 100MG *XL* TAB PO SCH (09:12)
[2022-12-29] MEDS: lisinopriL 5 MG TAB PO SCH (09:12)
[2022-12-29] MEDS: dilTIAZem 120MG **CD** CAPSULE PO SCH (19:48)
[2022-12-30] MEDS: ACETAMINOPHEN TAB 650MG DOSE (2X325MG) PO PRN ×2 (00:33→04:41)
[2022-12-30 05:46] LABS: HEMATOCRIT 42.6 % (36.0-47.0); HEMOGLOBIN 13.8 g/dl (12.0-15.5); MEAN CORPUSCULAR HEMOGLOBIN 29.9 pg (27.0-33.0); MEAN CORPUSCULAR HGB CONC 32.4 g/dl (32.0-36.5); MEAN CORPUSCULAR VOLUME 92.4 fl (80.0-96.0); PLATELET COUNT, AUTOMATED 185 10^3/uL (150-450); RED BLOOD COUNT 4.61 10^6/uL (4.00-5.40); WHITE BLOOD COUNT 5.5 10^3/uL (4.0-10.0)
[2022-12-30 06:16] VITALS: BP 150/89; TEMP 97.5; O2SAT 94
[2022-12-30 06:27] LABS: ALBUMIN 3.3 G/DL (3.2-5.2); ALKALINE PHOSPHATASE 33 U/L (46-116); ALT/SGPT 34 U/L (7.0-40); AST/SGOT 38 U/L (<34); BILIRUBIN,TOTAL 0.7 MG/DL (0.3-1.2); BLOOD UREA NITROGEN 16 MG/DL (9-23); CALCIUM LEVEL 8.7 MG/DL (8.3-10.6); CARBON DIOXIDE LEVEL 29 MMOL/L (20-31); CHLORIDE LEVEL 111 MMOL/L (98-107); GLOMERULAR FILTRATION RATE > 60.0 (>39); GLUCOSE, FASTING 96 MG/DL (74-106); POTASSIUM SERUM 3.7 MMOL/L (3.5-5.1); SODIUM LEVEL 144 MMOL/L (136-145); TOTAL PROTEIN 6.4 G/DL (5.7-8.2)
[2022-12-30] MEDS: APIXABAN 5 MG TAB (ELIQUIS) PO SCH ×2 (09:15→19:49)
[2022-12-30] MEDS: PRAVASTATIN 20 MG TAB PO SCH (09:15)
[2022-12-30] MEDS: DONEPEZIL 5 MG TAB PO SCH (09:15)
[2022-12-30] MEDS: lisinopriL 5 MG TAB PO SCH (09:17)
[2022-12-30] MEDS: METOPROLOL SUCC (TopROL XL) 100MG *XL* TAB PO SCH (09:18)
[2022-12-30] MEDS: MICONAZOLE 2 % POWDER (DESENEX) TOP SCH ×2 (10:34→19:49)
[2022-12-30] MEDS: dilTIAZem 120MG **CD** CAPSULE PO SCH (19:52)
[2022-12-31 06:25] LABS: HEMATOCRIT 45.7 % (36.0-47.0); HEMOGLOBIN 14.7 g/dl (12.0-15.5); MEAN CORPUSCULAR HEMOGLOBIN 30.4 pg (27.0-33.0); MEAN CORPUSCULAR HGB CONC 32.2 g/dl (32.0-36.5); MEAN CORPUSCULAR VOLUME 94.6 fl (80.0-96.0); PLATELET COUNT, AUTOMATED 182 10^3/uL (150-450); RED BLOOD COUNT 4.83 10^6/uL (4.00-5.40); WHITE BLOOD COUNT 6.7 10^3/uL (4.0-10.0)
[2022-12-31 07:02] LABS: ALBUMIN 3.2 G/DL (3.2-5.2); ALKALINE PHOSPHATASE 31 U/L (46-116); ALT/SGPT 36 U/L (7.0-40); AST/SGOT 43 U/L (<34); BILIRUBIN,TOTAL 0.7 MG/DL (0.3-1.2); BLOOD UREA NITROGEN 17 MG/DL (9-23); CALCIUM LEVEL 8.7 MG/DL (8.3-10.6); CARBON DIOXIDE LEVEL 19 MMOL/L (20-31); CHLORIDE LEVEL 112 MMOL/L (98-107); CREATININE FOR GFR 0.57 MG/DL (0.55-1.30); GLOMERULAR FILTRATION RATE > 60.0 (>39); GLUCOSE, FASTING 92 MG/DL (74-106); POTASSIUM SERUM 4.1 MMOL/L (3.5-5.1); SODIUM LEVEL 142 MMOL/L (136-145); TOTAL PROTEIN 6.2 G/DL (5.7-8.2)
[2022-12-31] MEDS: PRAVASTATIN 20 MG TAB PO SCH (08:49)
[2022-12-31] MEDS: lisinopriL 5 MG TAB PO SCH (08:49)
[2022-12-31] MEDS: METOPROLOL SUCC (TopROL XL) 100MG *XL* TAB PO SCH (08:49)
[2022-12-31] MEDS: APIXABAN 5 MG TAB (ELIQUIS) PO SCH ×2 (08:49→19:35)
[2022-12-31] MEDS: DONEPEZIL 5 MG TAB PO SCH (08:49)
[2022-12-31] MEDS: MICONAZOLE 2 % POWDER (DESENEX) TOP SCH ×2 (08:50→19:45)
[2022-12-31] MEDS: dilTIAZem 120MG **CD** CAPSULE PO SCH (19:39)
[2022-12-31] MEDS: CARBAMIDE PEROXIDE 6.5% OTIC SOLN 15ML AD SCH (19:41)
[2023-01-01 05:47] VITALS: BP 154/92; TEMP 97.9; O2SAT 96
[2023-01-01 05:48] LABS: HEMATOCRIT 44.3 % (36.0-47.0); HEMOGLOBIN 14.6 g/dl (12.0-15.5); MEAN CORPUSCULAR HEMOGLOBIN 29.7 pg (27.0-33.0); MEAN CORPUSCULAR VOLUME 90.2 fl (80.0-96.0); PLATELET COUNT, AUTOMATED 221 10^3/uL (150-450); RED BLOOD COUNT 4.91 10^6/uL (4.00-5.40); WHITE BLOOD COUNT 7.1 10^3/uL (4.0-10.0)
[2023-01-01 06:07] LABS: ALBUMIN 3.4 G/DL (3.2-5.2); ALKALINE PHOSPHATASE 38 U/L (46-116); ALT/SGPT 32 U/L (7.0-40); AST/SGOT 26 U/L (<34); BILIRUBIN,TOTAL 0.8 MG/DL (0.3-1.2); BLOOD UREA NITROGEN 16 MG/DL (9-23); CALCIUM LEVEL 9.1 MG/DL (8.3-10.6); CARBON DIOXIDE LEVEL 26 MMOL/L (20-31); CHLORIDE LEVEL 110 MMOL/L (98-107); CREATININE FOR GFR 0.61 MG/DL (0.55-1.30); GLOMERULAR FILTRATION RATE > 60.0 (>39); GLUCOSE, FASTING 110 MG/DL (74-106); POTASSIUM SERUM 3.7 MMOL/L (3.5-5.1); SODIUM LEVEL 144 MMOL/L (136-145); TOTAL PROTEIN 6.5 G/DL (5.7-8.2)
[2023-01-01] MEDS: APIXABAN 5 MG TAB (ELIQUIS) PO SCH ×2 (09:41→21:09)
[2023-01-01] MEDS: CARBAMIDE PEROXIDE 6.5% OTIC SOLN 15ML AD SCH (09:41)
[2023-01-01] MEDS: METOPROLOL SUCC (TopROL XL) 100MG *XL* TAB PO SCH (09:44)
[2023-01-01] MEDS: PRAVASTATIN 20 MG TAB PO SCH (09:45)
[2023-01-01] MEDS: lisinopriL 5 MG TAB PO SCH (09:45)
[2023-01-01] MEDS: DONEPEZIL 5 MG TAB PO SCH (09:45)
[2023-01-01] MEDS: MICONAZOLE 2 % POWDER (DESENEX) TOP SCH ×2 (09:45→21:11)
[2023-01-01] MEDS ORDERED: OXYMETAZOLINE 0.05% NASAL SPRAY (AFRIN) PRN (11:30)
[2023-01-01] MEDS ORDERED: SILVER NITRATE APPLICATOR (1 = QTY 10) TOP PRN (11:30)
[2023-01-01] MEDS: CIPRODEX OTIC SUSP 7.5ML AD SCH (21:09)
[2023-01-01] MEDS: dilTIAZem 120MG **CD** CAPSULE PO SCH (21:11)
[2023-01-02 05:30] VITALS: BP 152/104; TEMP 97.5; O2SAT 94
[2023-01-02 06:01] LABS: HEMATOCRIT 46.9 % (36.0-47.0); HEMOGLOBIN 15.3 g/dl (12.0-15.5); MEAN CORPUSCULAR HEMOGLOBIN 29.8 pg (27.0-33.0); MEAN CORPUSCULAR HGB CONC 32.6 g/dl (32.0-36.5); MEAN CORPUSCULAR VOLUME 91.4 fl (80.0-96.0); PLATELET COUNT, AUTOMATED 222 10^3/uL (150-450); RED BLOOD COUNT 5.13 10^6/uL (4.00-5.40); WHITE BLOOD COUNT 6.9 10^3/uL (4.0-10.0)
[2023-01-02 06:27] LABS: ALBUMIN 3.3 G/DL (3.2-5.2); ALKALINE PHOSPHATASE 35 U/L (46-116); ALT/SGPT 27 U/L (7.0-40); AST/SGOT 26 U/L (<34); BILIRUBIN,TOTAL 0.8 MG/DL (0.3-1.2); BLOOD UREA NITROGEN 16 MG/DL (9-23); CARBON DIOXIDE LEVEL 27 MMOL/L (20-31); CHLORIDE LEVEL 108 MMOL/L (98-107); CREATININE FOR GFR 0.62 MG/DL (0.55-1.30); GLOMERULAR FILTRATION RATE > 60.0 (>39); GLUCOSE, FASTING 96 MG/DL (74-106); POTASSIUM SERUM 4.2 MMOL/L (3.5-5.1); SODIUM LEVEL 142 MMOL/L (136-145); TOTAL PROTEIN 6.3 G/DL (5.7-8.2)
[2023-01-02 09:45] VITALS: BP 88/60
[2023-01-02] MEDS: PRAVASTATIN 20 MG TAB PO SCH (09:47)
[2023-01-02] MEDS: DONEPEZIL 5 MG TAB PO SCH (09:47)
[2023-01-02] MEDS: APIXABAN 5 MG TAB (ELIQUIS) PO SCH ×2 (09:47→21:35)
[2023-01-02] MEDS: lisinopriL 5 MG TAB PO SCH (10:05)
[2023-01-02] MEDS: METOPROLOL SUCC (TopROL XL) 100MG *XL* TAB PO SCH (10:05)
[2023-01-02] MEDS: CIPRODEX OTIC SUSP 7.5ML AD SCH ×2 (11:10→21:35)
[2023-01-02] MEDS: MICONAZOLE 2 % POWDER (DESENEX) TOP SCH ×2 (11:11→21:35)
[2023-01-02 11:20] VITALS: BP 100/74
[2023-01-02 21:37] VITALS: BP 131/83
[2023-01-02] MEDS: dilTIAZem 120MG **CD** CAPSULE PO SCH (21:37)
[2023-01-02 22:01] VITALS: O2SAT 94
[2023-01-02] MEDS ORDERED: METOPROLOL TART 50 MG TAB PO ONE (22:15)
[2023-01-03 01:25] VITALS: O2SAT 94
[2023-01-03 03:34] VITALS: O2SAT 94
[2023-01-03 03:39] VITALS: O2SAT 93
[2023-01-03 05:47] VITALS: BP 130/91; TEMP 98.1; O2SAT 94
[2023-01-03 05:56] LABS: HEMATOCRIT 45.9 % (36.0-47.0); HEMOGLOBIN 14.8 g/dl (12.0-15.5); MEAN CORPUSCULAR HEMOGLOBIN 29.4 pg (27.0-33.0); MEAN CORPUSCULAR HGB CONC 32.2 g/dl (32.0-36.5); MEAN CORPUSCULAR VOLUME 91.3 fl (80.0-96.0); PLATELET COUNT, AUTOMATED 232 10^3/uL (150-450); RED BLOOD COUNT 5.03 10^6/uL (4.00-5.40); WHITE BLOOD COUNT 6.5 10^3/uL (4.0-10.0)
[2023-01-03 06:29] LABS: ALBUMIN 3.5 G/DL (3.2-5.2); ALKALINE PHOSPHATASE 36 U/L (46-116); ALT/SGPT 33 U/L (7.0-40); AST/SGOT 26 U/L (<34); BILIRUBIN,TOTAL 0.8 MG/DL (0.3-1.2); BLOOD UREA NITROGEN 15 MG/DL (9-23); CALCIUM LEVEL 9.1 MG/DL (8.3-10.6); CARBON DIOXIDE LEVEL 29 MMOL/L (20-31); CHLORIDE LEVEL 108 MMOL/L (98-107); CREATININE FOR GFR 0.77 MG/DL (0.55-1.30); GLOMERULAR FILTRATION RATE > 60.0 (>39); GLUCOSE, FASTING 91 MG/DL (74-106); SODIUM LEVEL 145 MMOL/L (136-145); TOTAL PROTEIN 6.7 G/DL (5.7-8.2)
[2023-01-03] MEDS: DONEPEZIL 5 MG TAB PO SCH (10:01)
[2023-01-03] MEDS: lisinopriL 5 MG TAB PO SCH (10:02)
[2023-01-03] MEDS: CIPRODEX OTIC SUSP 7.5ML AD SCH ×2 (10:02→20:34)
[2023-01-03] MEDS: METOPROLOL SUCC (TopROL XL) 100MG *XL* TAB PO SCH (10:02)
[2023-01-03] MEDS: APIXABAN 5 MG TAB (ELIQUIS) PO SCH ×2 (10:02→20:33)
[2023-01-03] MEDS: PRAVASTATIN 20 MG TAB PO SCH (10:02)
[2023-01-03] MEDS: MICONAZOLE 2 % POWDER (DESENEX) TOP SCH ×2 (10:03→20:34)
[2023-01-03] MEDS ORDERED: DIGOXIN 0.25 MG TAB PO ONE (13:00)
[2023-01-03 20:27] VITALS: BP 108/72
[2023-01-03] MEDS: dilTIAZem 120MG **CD** CAPSULE PO SCH (20:34)
[2023-01-04 05:27] VITALS: BP 127/90; TEMP 97.2; O2SAT 95
[2023-01-04 06:06] LABS: HEMATOCRIT 43.2 % (36.0-47.0); HEMOGLOBIN 14.1 g/dl (12.0-15.5); MEAN CORPUSCULAR HEMOGLOBIN 30.1 pg (27.0-33.0); MEAN CORPUSCULAR HGB CONC 32.6 g/dl (32.0-36.5); MEAN CORPUSCULAR VOLUME 92.3 fl (80.0-96.0); PLATELET COUNT, AUTOMATED 259 10^3/uL (150-450); RED BLOOD COUNT 4.68 10^6/uL (4.00-5.40); WHITE BLOOD COUNT 6.9 10^3/uL (4.0-10.0)
[2023-01-04 06:32] LABS: ALBUMIN 3.1 G/DL (3.2-5.2); ALKALINE PHOSPHATASE 35 U/L (46-116); ALT/SGPT 33 U/L (7.0-40); AST/SGOT 26 U/L (<34); BILIRUBIN,TOTAL 0.7 MG/DL (0.3-1.2); BLOOD UREA NITROGEN 22 MG/DL (9-23); CALCIUM LEVEL 8.9 MG/DL (8.3-10.6); CARBON DIOXIDE LEVEL 27 MMOL/L (20-31); CHLORIDE LEVEL 109 MMOL/L (98-107); CREATININE FOR GFR 0.75 MG/DL (0.55-1.30); GLOMERULAR FILTRATION RATE > 60.0 (>39); GLUCOSE, FASTING 91 MG/DL (74-106); SODIUM LEVEL 143 MMOL/L (136-145)
[2023-01-04] MEDS: MICONAZOLE 2 % POWDER (DESENEX) TOP SCH ×2 (08:58→21:00)
[2023-01-04] MEDS: CIPRODEX OTIC SUSP 7.5ML AD SCH ×2 (08:58→20:59)
[2023-01-04] MEDS: DIGOXIN 0.25 MG TAB PO SCH (08:58)
[2023-01-04] MEDS: APIXABAN 5 MG TAB (ELIQUIS) PO SCH ×2 (08:59→20:59)
[2023-01-04] MEDS: lisinopriL 5 MG TAB PO SCH (08:59)
[2023-01-04] MEDS: METOPROLOL SUCC (TopROL XL) 100MG *XL* TAB PO SCH (08:59)
[2023-01-04] MEDS: DONEPEZIL 5 MG TAB PO SCH (08:59)
[2023-01-04] MEDS: PRAVASTATIN 20 MG TAB PO SCH (08:59)
[2023-01-04 20:00] VITALS: BP 105/65
[2023-01-04] MEDS: dilTIAZem 120MG **CD** CAPSULE PO SCH (20:59)
[2023-01-05 04:16] VITALS: BP 115/78; TEMP 97.3; O2SAT 93
[2023-01-05] MEDS: PRAVASTATIN 20 MG TAB PO SCH (09:48)
[2023-01-05] MEDS: lisinopriL 5 MG TAB PO SCH (09:48)
[2023-01-05] MEDS: DIGOXIN 0.25 MG TAB PO SCH (09:48)
[2023-01-05] MEDS: DONEPEZIL 5 MG TAB PO SCH (09:48)
[2023-01-05] MEDS: APIXABAN 5 MG TAB (ELIQUIS) PO SCH ×2 (09:48→20:30)
[2023-01-05] MEDS: CIPRODEX OTIC SUSP 7.5ML AD SCH ×2 (09:49→20:30)
[2023-01-05] MEDS: METOPROLOL SUCC (TopROL XL) 100MG *XL* TAB PO SCH (09:49)
[2023-01-05] MEDS: MICONAZOLE 2 % POWDER (DESENEX) TOP SCH ×2 (09:49→20:30)
[2023-01-05 20:59] VITALS: BP 118/69
[2023-01-05] MEDS: dilTIAZem 120MG **CD** CAPSULE PO SCH (21:09)
[2023-01-06 04:51] VITALS: BP 116/72; TEMP 97.5; O2SAT 94
[2023-01-06] MEDS: APIXABAN 5 MG TAB (ELIQUIS) PO SCH ×2 (09:40→21:17)
[2023-01-06] MEDS: DONEPEZIL 5 MG TAB PO SCH (09:47)
[2023-01-06] MEDS: METOPROLOL SUCC (TopROL XL) 100MG *XL* TAB PO SCH (09:47)
[2023-01-06] MEDS: DIGOXIN 0.25 MG TAB PO SCH (09:47)
[2023-01-06] MEDS: PRAVASTATIN 20 MG TAB PO SCH (09:47)
[2023-01-06] MEDS: lisinopriL 5 MG TAB PO SCH (09:48)
[2023-01-06] MEDS: MICONAZOLE 2 % POWDER (DESENEX) TOP SCH ×2 (09:49→21:20)
[2023-01-06] MEDS: dilTIAZem 120MG **CD** CAPSULE PO SCH (21:17)
[2023-01-07 04:24] VITALS: BP 138/88; TEMP 98.1; O2SAT 95
[2023-01-07] MEDS: DONEPEZIL 5 MG TAB PO SCH (08:23)
[2023-01-07] MEDS: APIXABAN 5 MG TAB (ELIQUIS) PO SCH ×2 (08:23→21:20)
[2023-01-07] MEDS: PRAVASTATIN 20 MG TAB PO SCH (08:24)
[2023-01-07] MEDS: MICONAZOLE 2 % POWDER (DESENEX) TOP SCH ×2 (08:24→21:22)
[2023-01-07] MEDS: DIGOXIN 0.25 MG TAB PO SCH (08:25)
[2023-01-07] MEDS: METOPROLOL SUCC (TopROL XL) 100MG *XL* TAB PO SCH (08:25)
[2023-01-07] MEDS: lisinopriL 5 MG TAB PO SCH (08:25)
[2023-01-07] MEDS: dilTIAZem 120MG **CD** CAPSULE PO SCH (21:21)
[2023-01-08] MEDS: ACETAMINOPHEN TAB 650MG DOSE (2X325MG) PO PRN (05:20)
[2023-01-08 05:59] VITALS: BP 131/76; TEMP 97; O2SAT 96
[2023-01-08] MEDS: lisinopriL 5 MG TAB PO SCH (08:57)
[2023-01-08] MEDS: APIXABAN 5 MG TAB (ELIQUIS) PO SCH (08:58)
[2023-01-08] MEDS: DIGOXIN 0.25 MG TAB PO SCH (08:58)
[2023-01-08] MEDS: PRAVASTATIN 20 MG TAB PO SCH (08:58)
[2023-01-08] MEDS: MICONAZOLE 2 % POWDER (DESENEX) TOP SCH ×2 (08:58→20:47)
[2023-01-08] MEDS: DONEPEZIL 5 MG TAB PO SCH (08:58)
[2023-01-08] MEDS: METOPROLOL SUCC (TopROL XL) 100MG *XL* TAB PO SCH (08:58)
[2023-01-08] MEDS: dilTIAZem 120MG **CD** CAPSULE PO SCH (20:47)
[2023-01-09 06:00] VITALS: BP 147/87; TEMP 97; O2SAT 95
[2023-01-09 08:16] VITALS: BP 133/83
[2023-01-09] MEDS: lisinopriL 5 MG TAB PO SCH (08:16)
[2023-01-09] MEDS: DIGOXIN 0.25 MG TAB PO SCH (08:16)
[2023-01-09] MEDS: METOPROLOL SUCC (TopROL XL) 100MG *XL* TAB PO SCH (08:16)
[2023-01-09] MEDS: PRAVASTATIN 20 MG TAB PO SCH (08:16)
[2023-01-09] MEDS: MICONAZOLE 2 % POWDER (DESENEX) TOP SCH (08:17)
[2023-01-09] MEDS: DONEPEZIL 5 MG TAB PO SCH (08:17)
[2023-01-09] MEDS: APIXABAN 5 MG TAB (ELIQUIS) PO SCH (09:37)
[2023-01-09] MEDS ORDERED: LevoFLOXacin 750 MG TABLET PO SCH (09:51)
[2023-01-09] MEDS ORDERED: LEVO1TAB40 PO (09:55)
[2023-01-09] MEDS ORDERED: DIGO0.123 PO (09:55)
[2023-01-09] MEDS ORDERED: LISI5TAB11 PO (10:05)
== END 2023-01-09 12:01 ==
LOC: M ED 01:34 → EDBD 01:34 → M ED INP 11:34 → M PCU 18:47 → M MSPAV 12-28 21:07
PROVIDERS: ADMIT Internal Medicine; ATTEND Internal Medicine Nephrology
DX: M48.07 Spinal stenosis, lumbosacral region (principal); R26.9 Unspecified abnormalities of gait and mobility; Z91.81 History of falling; R54 Age-related physical debility; R31.9 Hematuria, unspecified; R33.9 Retention of urine, unspecified; H71.91 Unspecified cholesteatoma, right ear; H61.21 Impacted cerumen, right ear; I48.20 Chronic atrial fibrillation, unspecified; I10 Essential (primary) hypertension; E78.5 Hyperlipidemia, unspecified; M81.0 Age-related osteoporosis without current pathological fracture; Z85.3 Personal history of malignant neoplasm of breast; F03.90 Unspecified dementia, unspecified severity, without behavioral disturbance, psychotic disturbance, mood disturbance, and anxiety; Z88.0 Allergy status to penicillin; Z88.5 Allergy status to narcotic agent; Z88.8 Allergy status to other drugs, medicaments and biological substances; K90.41 Non-celiac gluten sensitivity; Z79.899 Other long term (current) drug therapy; Z79.01 Long term (current) use of anticoagulants
CPT/HCPCS: 36415; 69105; 70450; 71045; 72131; 73502; 73552; 74177; 80048; 80053; 80076; 80143; 80307; 81001; 82077; 82140; 82550; 82553; 83605; 84443; 84484; 85025; 85027; 85610; 85730; 87040; 87086; 87631; 87635; 88305; 93005; 93041; 94760; 96361; 96365; 96375; 97116; 97161; 97164; 97165; 97530; 97535; 99285; G0378; J0131; J2405; Q9967

== ENCOUNTER → 2023-05-10 | Outpatient (REF) | payer MEDICARE, OTHER ==
[~2023-05-10] MED LIST changes: +CULTCAP2 PO; +DIGO0.123 PO; +DONE10TA90 PO; +LEVO1TAB40 PO; +METO200T28 PO; +VITAMIN B COMPLEX PO; +[UNRECOGNIZED DRUG - CODE] PO; +[UNRECOGNIZED DRUG - OTHER]
== END ==
LOC: M LAB REF 16:35
PROVIDERS: ATTEND Internal Medicine
DX: I48.0 Paroxysmal atrial fibrillation (principal)